=== PATIENT | female | born 1935 | race Caucasian/White ===

== ENCOUNTER 2017-01-15 11:50 | Outpatient (CLI) | payer MEDICARE, OTHER | END 2017-01-15 11:51 | disposition critical access hospital (66) | DX: R53.1 Weakness (principal); R47.9 Unspecified speech disturbances | CPT/HCPCS: A0425; A0429 ==

== ENCOUNTER 2017-01-15 12:10 | Observation (INO) | payer MEDICARE, OTHER ==
[2017-01-15] MEDS ORDERED: LORazepam 2 MG/ML SYRINGE IVP STA (14:29)
[2017-01-15] MEDS ORDERED: LORazepam 2 MG/ML SYRINGE ONE (14:32)
[2017-01-15] MEDS ORDERED: SODIUM CHLORIDE 0.9% 1,000 ML IV ONE (14:42)
[2017-01-15] MEDS ORDERED: SODIUM CHLORIDE FLUSH 0.9% 10 ML SYRINGE IVP PRN (15:44)
[2017-01-15] MEDS: SODIUM CHLORIDE 0.9% 1,000 ML IV SCH (18:07)
[2017-01-15] MEDS: SODIUM CHLORIDE FLUSH 0.9% 10 ML SYRINGE IVP SCH (21:51)
[2017-01-16] MEDS: SODIUM CHLORIDE FLUSH 0.9% 10 ML SYRINGE IVP SCH (06:47)
[2017-01-16] MEDS: SODIUM CHLORIDE 0.9% 1,000 ML IV SCH (06:52)
[2017-01-16] MEDS ORDERED: ASPIRIN 325 MG TABLET PO SCH (08:00)
[2017-01-16] MEDS ORDERED: ASPIRIN CHEW 81 MG TABLET PO SCH (09:00)
[2017-01-16] MEDS ORDERED: SODIUM CHLORIDE 0.9% 1,000 ML IV SCH (09:00)
[2017-01-16] MEDS ORDERED: amLODIPine 5 MG TABLET PO SCH (09:00)
[2017-01-16] MEDS ORDERED: METOPROLOL SUCCINATE 50 MG TABLET PO SCH (09:00)
[2017-01-16] MEDS ORDERED: POLYETHYLENE GLYCOL 3350 17 GM PACKET PO SCH (09:00)
== END 2017-01-16 14:15 | disposition home or self-care (01) ==
DX: R41.0 Disorientation, unspecified (principal); R40.0 Somnolence; T50.905A Adverse effect of unspecified drugs, medicaments and biological substances, initial encounter; Y92.009 Unspecified place in unspecified non-institutional (private) residence as the place of occurrence of the external cause; I10 Essential (primary) hypertension; I25.10 Atherosclerotic heart disease of native coronary artery without angina pectoris; Z95.1 Presence of aortocoronary bypass graft; E86.0 Dehydration; R25.1 Tremor, unspecified; Z79.82 Long term (current) use of aspirin
CPT/HCPCS: 36415; 51701; 70450; 71010; 80048; 80053; 80306; 80307; 81003; 82550; 83605; 83690; 83880; 84443; 84484; 85025; 85610; 85730; 87040; 93005; 93010; 96361; 96374; 99285; A9270; G0378; G0480; J2060